=== PATIENT | female | born 2000 | race Two or more races ===

== ENCOUNTER → 2024-08-06 | Outpatient (CLI) | payer BC, SELFPAY ==
--- NOTE | 2024-08-06 14:00 | XR_ITS ---
Examination: Pelvic ultrasound, transabdominal, complete Technique: Transabdominal ultrasound of the pelvis performed using grayscale imaging Date and time of exam: August 06, 2024 1432 hours INDICATIONS: Painful menses several years, ovarian cyst diagnosed one year ago FINDINGS: Uterus 8.6 x 4.3 x 6.5 cm Endometrial stripe 0.8 cm No uterine mass or intrauterine gestation Right ovary obscured by bowel gas Left ovary 2.9 x 2.0 x 2.9 cm arterial flow small follicles IMPRESSION: No uterine mass or intrauterine gestation
== END | disposition home or self-care (01) ==
PROVIDERS: PCP Nurse Practitioner Primary Care; Referring Provider Nurse Practitioner Primary Care; Visit Provider Nurse Practitioner Primary Care
DX: N92.0 Excessive and frequent menstruation with regular cycle (principal)
CPT/HCPCS: 76856